=== PATIENT | male | born 1945 | race Two or more races ===

== ENCOUNTER 2022-05-30 07:33 | Day surgery (SDC) | payer OTHER | END 2022-05-30 12:45 | disposition home or self-care (01) | LOC: AMB-ENDOS 07:33 | PROVIDERS: ATTEND Surgery | DX: D12.4 Benign neoplasm of descending colon (principal); D12.3 Benign neoplasm of transverse colon; K57.30 Diverticulosis of large intestine without perforation or abscess without bleeding; Z20.822 Contact with and (suspected) exposure to COVID-19 ==